=== PATIENT | male | born 1950 | race Caucasian/White ===

== ENCOUNTER → 2019-03-03 | Outpatient (CLI) | payer MEDICARE ==
--- NOTE | 2019-03-03 08:50 | Diagnostic Imaging Report ---
EXAM: US ABDOMEN COMPLETE DATE: 03/03/2019 7:43 AM INDICATION: Hyperbilirubinemia COMPARISON: None TECHNIQUE: Transverse and longitudinal oshea scale and color doppler sonographic images of the upper abdomen were obtained. FINDINGS: There is no evidence of fluid or masses seen in the area of clinical concern in the right lower quadrant. LIVER 17.0 cm in the right midclavicular line. Increased echogenicity of the liver with normal contour, no masses. SPLEEN 11.6 cm in maximum diameter. Normal echogenicity, no masses. GALLBLADDER There is a 7.6 mm calculus in the gallbladder along with a small amount of sludge. No gallbladder wall thickening, gallbladder distention or pericholecystic fluid. Negative sonographic Cox's sign. Gallbladder wall measures 1 mm. BILE DUCTS No intra nor extra-hepatic biliary dilation. Common bile duct measures 3 mm PANCREAS: Visualized portions are normal. RIGHT KIDNEY: 11.7 cm Echogenicity: Normal Collecting System: No hydronephrosis Stones: None Cyst/Mass: None LEFT KIDNEY: 10.8 cm Echogenicity: Normal Collecting System: No hydronephrosis Stones: None Cyst/Mass: None VESSELS: Aorta: Visualized portions are within normal size limits Inferior Vena Cava: Visualized portions are normal Main Portal Vein: 0.9 cm, normal size with hepatopetal flow. FREE FLUID: None IMPRESSION: Cholelithiasis without sonographic evidence of cholecystitis. Hepatic steatosis. Signed by: Indira Ann MD on 03/03/2019 8:47 AM
== END ==
LOC: US 07:36
PROVIDERS: ATTEND Family Medicine
DX: R17 Unspecified jaundice (principal)
CPT/HCPCS: 76700